=== PATIENT | female | born 1990 | race Hispanic/Latino ===

== ENCOUNTER 2016-10-14 17:23 | Inpatient (IN) | payer OTHER ==
[2016-10-14 17:56] VITALS: BMI 52.1
[2016-10-14] MEDS: Lactated Ringer's 1,000 ML IV SCH (18:10)
--- NOTE | 2016-10-14 18:10 | OBADHP ---
Datetime: 10/14/2016 18:01 Admit Comment, IP Provider: at 37+weeks send from pmd offuce due to bp 170/105,no hedacxhe or b lurry vision, no ctxs, vb, lof,+fm. pt was placed on labetol 100 mg bid 2 weks ago. pt took her meds today. obhx primi pmh pih med labetolol all nkda psh denies soh denies ve cft/50/-3 a/p at 37+weeks r/o preeclampsia admit to l_d npo/ivf labs pih work up bp monitoring cont bright and efm cervidil for cervical ripening aniticipate Pelvic Type - PN: Adequate Extremities - PN: Normal Abdomen - PN: Normal Back - PN: Normal Breast - PN: Not Done Lungs - PN: Normal Heart - PN: Normal Thyroid - PN: Not Done Neurologic - PN: Normal HEENT - PN: Normal General - PN: Normal FHR - Baseline A Provider: 130 Contraction Comments Provider: occ Comments, ACOG Physical Exam: gravid,non tender ext mild edema,no calf ten ref 1+ bss vertex IP Hx Assessment: The History has been Reviewed and is Current Vital Signs Provider: Reviewed IP Chief Complaint: Signs/Symptoms Gestational HTN NICHD Variability Prov Fetus A: Moderate 6-25bpm NICHD Accel Fetus A IP Provider: 15X15 FHR Category Provider Fetus A: Category I (Annotations: Data stored by CPN on behalf of user) Dilatation, Provider: ft Effacement, Provider: 50 Station, Provider: -2 Genitourinary Exam: Normal DTRs - PN: Normal EGA AdmitDate IP: 37.3 IP Adm Impression: Term, intrauterine ; No Active Labor; Intact Membranes IP Admit Plan: Admit to unit; Initiate labor induction protocol
[2016-10-14 18:39] LABS: BASO % 0.1 % (0.0-2.0); EOS # 0.4 K/uL (0.0-0.7); EOS % 2.7 % (0.0-4.0); HEMATOCRIT 36.7 % (34.0-47.0); LYMPH # 1.5 K/uL (1.0-4.3); LYMPH % 11.2 % (20.0-40.0); MEAN CELL VOLUME 88.6 fL (81.0-99.0); MEAN CORPUSCULAR HEMOGLOBIN 29.3 pg (27.0-31.0); MEAN CORPUSCULAR HGB CONC 33.1 g/dL (33.0-37.0); MEAN PLATELET VOLUME 9.6 fL (7.2-11.7); MONO # 0.8 K/uL (0.0-0.8); MONO % 6.4 % (0.0-10.0); WHITE BLOOD COUNT 13.3 K/uL (4.8-10.8)
[2016-10-14 18:40] LABS: CHLORIDE 100 mmol/L (98-107)
[2016-10-14 18:41] LABS: POTASSIUM 3.8 mmol/L (3.6-5.2); SODIUM 134 mmol/L (132-148)
[2016-10-14 18:43] LABS: ALB/GLOB RATIO 1.2 (1.0-2.1); ALKALINE PHOSPHATASE 124 U/L (38-126); ALT/SGPT 16 U/L (9-52); AST/SGOT 15 U/L (14-36); BILIRUBIN,TOTAL < 0.1 mg/dL (0.2-1.3); BLOOD UREA NITROGEN 10 mg/dL (7-17); CARBON DIOXIDE 20 mmol/L (22-30); GFR AFRICAN-AMERICAN > 60; GLUCOSE,RANDOM 80 mg/dL (65-105); TOTAL PROTEIN 6.4 g/dL (6.3-8.3)
[2016-10-14 18:44] LABS: URIC ACID 3.9 mg/dL (2.2-7.5)
[2016-10-14 18:59] LABS: RBC URINE 18 /hpf (0-3); URINE BACTERIA MOD (<OCC); URINE BILIRUBIN NEGATIVE (NEGATIVE); URINE BLOOD NEGATIVE (NEGATIVE); URINE COLOR Yellow (YELLOW); URINE GLUCOSE (UA) NORMAL (Normal); URINE KETONE NEGATIVE (NEGATIVE); URINE LEUKOCYTE ESTERASE 1+ Leu/uL (Negative); URINE PROTEIN 2+ mg/dL (NEGATIVE); URINE UROBILINOGEN NORMAL mg/dL (0.2-1.0); WBC URINE 20 /hpf (0-5)
--- NOTE | 2016-10-14 19:22 | OBPN ---
Datetime: 10/14/2016 19:20 IP Procedures: Sterile Vag Exam IP Progress Plan: Cervical Ripening Contraction Comments Provider: none FHR - Baseline A Provider: 140 IP Progress Note Comment: pt was examined at bed side ve ft/50/-3 cervidil placed r/a/b discussed Vital Signs Provider: Reviewed NICHD Accel Fetus A IP Provider: 15X15 FHR Category Provider Fetus A: Category I NICHD Variability Prov Fetus A: Moderate 6-25bpm Dilatation, Provider: ft Effacement, Provider: 50 Station, Provider: -2 Datetime: 10/14/2016 18:01 IP Informed Consent Obtain: Vaginal Delivery
[2016-10-14] MEDS ORDERED: Nalbuphine 20 mg/ml Inj (1 ml) IVP PRN (19:30)
--- NOTE | 2016-10-14 20:05 | OBADHP ---
Datetime: 10/14/2016 19:20 IP Chief Complaint Other: 25 year old P0 at 37 weeks Gestation, chronic Hypertension on Labetalol ad mitted for labor induction for sperimposed Preeclampsia. Admit Comment, IP Provider: 37 weeks Gestation, superimposed Preeclampsia admitted for labor inducti on Pelvic Type - PN: Adequate Extremities - PN: Normal Abdomen - PN: Normal Back - PN: Normal Breast - PN: Normal Lungs - PN: Normal Heart - PN: Normal Thyroid - PN: Normal Neurologic - PN: Normal HEENT - PN: Normal General - PN: Normal Weight - Estimated: 2900 Presentation-Admit: Vertex FHR - Baseline A Provider: 140 Contraction Comments Provider: none Gestation - Est Wks by US: 37.0 IP Hx Assessment: The History has been Reviewed and is Current Vital Signs Provider: Reviewed IP Chief Complaint: Signs/Symptoms Gestational HTN NICHD Variability Prov Fetus A: Moderate 6-25bpm NICHD Accel Fetus A IP Provider: 15X15 FHR Category Provider Fetus A: Category I NICHD Decel Fetus A IP Provider: None Dilatation, Provider: ft Effacement, Provider: 50 Station, Provider: -2 Genitourinary Exam: Normal DTRs - PN: Normal EGA AdmitDate IP: 37.3 IP Adm Impression: Term, intrauterine ; No Active Labor IP Admit Plan: Admit to unit; Initiate labor induction protocol
[2016-10-15] MEDS: Lactated Ringer's 1,000 ML IV SCH (00:25)
[2016-10-15] MEDS ORDERED: Oxytocin 30 UNIT 500 ML IV ONE (06:14)
--- NOTE | 2016-10-15 06:14 | OBPN ---
Datetime: 10/15/2016 06:11 IP Procedures: Sterile Vag Exam FHR - Baseline A Provider: 130 IP Progress Note Comment: pt ws examined t bed side ve /-[address] lozano aware Vital Signs Provider: Reviewed; Within Normal Limits NICHD Accel Fetus A IP Provider: 15X15 FHR Category Provider Fetus A: Category I NICHD Variability Prov Fetus A: Moderate 6-25bpm Dilatation, Provider: 2 Effacement, Provider: 70 Station, Provider: -2 Datetime: 10/14/2016 19:20 Gestation - Est Wks by US: 37.0 Weight - Estimated: 2900 Presentation-Admit: Vertex NICHD Decel Fetus A IP Provider: None
[2016-10-15] MEDS ORDERED: Oxytocin 30 UNIT 500 ML IV PRN (06:16)
--- NOTE | 2016-10-15 09:48 | OBPN ---
Datetime: 10/15/2016 09:44 IP Progress Impression: Normal progression of labor; Reassuring heart rate IP Informed Consent Obtain: Vaginal Delivery; Risks, Benefits and Alternatives Discussed IP Procedures: Sterile Vag Exam IP Progress Plan: Continue present management; Augmentation; Anticipate Vaginal Delivery Membranes, Provider: Intact Contraction Comments Provider: Q 3min. FHR - Baseline A Provider: 140 Gestation - Est Wks by US: 37.0 Weight - Estimated: 2900 Presentation-Admit: Vertex IP Progress Note Comment: Latent Phase of Labor. Reassuring Status. Anticipate . Vital Signs Provider: Reviewed; Within Normal Limits NICHD Accel Fetus A IP Provider: 15X15 FHR Category Provider Fetus A: Category I NICHD Variability Prov Fetus A: Moderate 6-25bpm Dilatation, Provider: 3 Effacement, Provider: 80 Station, Provider: -1 NICHD Decel Fetus A IP Provider: None
[2016-10-15] MEDS ORDERED: Bupivacaine HCl 0.25% PF (10 ml) Inj ONE ×2 (10:26→11:05)
[2016-10-15] MEDS ORDERED: Bupivacaine 0.125%/FentaNYL 200 ML EPI ONE (10:27)
--- NOTE | 2016-10-15 10:42 | OBPN ---
Datetime: 10/15/2016 10:36 IP Procedures Other: FSE for continuos monitoring because of body habitus. IP Progress Plan Other: Epidural Anesthesia given IP Progress Impression: Normal progression of labor; Reassuring heart rate IP Informed Consent Obtain: Vaginal Delivery; Risks, Benefits and Alternatives Discussed IP Procedures: Artificial ROM; Scalp Electrode; Sterile Vag Exam IP Progress Plan: Continue present management; Augmentation Membranes, Provider: Ruptured Amniotic Fluid Color, Provider: Clear FHR - Baseline A Provider: 140 Gestation - Est Wks by US: 37.0 Weight - Estimated: 2900 Presentation-Admit: Vertex IP Progress Note Comment: Active Labor. Reassuring Status. Anticipate Vital Signs Provider: Reviewed; Within Normal Limits NICHD Accel Fetus A IP Provider: 15X15 FHR Category Provider Fetus A: Category I NICHD Variability Prov Fetus A: Moderate 6-25bpm Dilatation, Provider: 4 Effacement, Provider: 100 Station, Provider: -1 NICHD Decel Fetus A IP Provider: None
--- NOTE | 2016-10-15 14:48 | OBPN ---
Datetime: 10/15/2016 14:41 IP Progress Impression: Normal progression of labor; Reassuring heart rate IP Informed Consent Obtain: Vaginal Delivery; Risks, Benefits and Alternatives Discussed IP Procedures: Sterile Vag Exam IP Progress Plan: Continue present management; Augmentation; Anticipate Vaginal Delivery Membranes, Provider: Ruptured FHR - Baseline A Provider: 130 Gestation - Est Wks by US: 37.0 Weight - Estimated: 2900 Presentation-Admit: Vertex IP Progress Note Comment: Active Labor. Category II Heart Tracing, close to Delivery. Vital Signs Provider: Reviewed; Within Normal Limits FHR Category Provider Fetus A: Category II NICHD Variability Prov Fetus A: Moderate 6-25bpm Dilatation, Provider: 8 Effacement, Provider: 100 Station, Provider: 0 NICHD Decel Fetus A IP Provider: Variable
[2016-10-15] MEDS ORDERED: Lidocaine 2% Inj (20ml) ONE ×2 (16:50→18:24)
[2016-10-15] MEDS ORDERED: Benzocaine/Menthol 20%-0.5% Topical Spray (60 ml) TOP PRN (18:39)
--- NOTE | 2016-10-15 18:47 | OBDS ---
DELIVERY PERSONNEL Delivery Doctor: Angélica Santana MD Scrub Nurse: Jaquelin Rivera [employer] Professor: Liliane Kohler RN MATERNAL INFORMATION Delivery Anesthesia: Epidural Medications in Delivery: Lidocaine 2%; Pitocin 30 units IV Estimated Blood Loss (ml): 150 Placenta Cultured: No Maternal Complications: None RN Comments: Liveborn Baby Girl. 9-9 Provider Comments: to a viable girl, 's 9/9. LABOR SUMMARY EDC: 11/01/2016 00:00 No. Babies in Womb: 1 Attempted: No Labor Anesthesia: Epidural LABOR INFORMATION Reason for Induction: Other Complete Dilatation: 10/15/2016 16:46 Cervical Ripening Agents: Cervidil Oxytocin: Induction Group B Beta Strep: Negative (Annotations: 10/10/16 ) Antibiotics # of Doses: 0 Antibiotics Time of Last Dose: 0 Steroids Given: None Reason Steroids Not Administered: Not Applicable MEMBRANES Membranes Rupture Method: Artificial Rupture of Membranes: 10/15/2016 09:41 Length of Rupture (hrs): 8.48 Amniotic Fluid Color: Clear Amniotic Fluid Amount: Small Amniotic Fluid Odor: Normal STAGES OF LABOR Stage 2 hrs: 1 Stage 2 min: 24 Stage 3 hrs: 0 Stage 3 min: 7 VAGINAL DELIVERY Episiotomy: None Laceration Extension: Second Degree Laceration Type: Perineal Laceration Repair: Yes Laceration Repair Note: Second Degree laceration repaired with 2-0 Chromic catgut Initial Vag Sponge Count: 10 Initial Vag Sharps Count: 1 Sponge Count Correct: Vaginal Sweep Performed BABY A INFORMATION Delivery Date/Time: 10/15/2016 18:10 Method of Delivery: Vaginal Born in Route : No : N/A Forceps: N/A Vacuum Extraction: N/A Shoulder Dystocia : No SHOULDER DYSTOCIA BABY A Delivery Date/Time: 10/15/2016 18:10 PRESENTATION/POSITION BABY A Presentation: Cephalic Cephalic Presentation: Vertex Vertex Position: Right Occipital Anterior Breech Presentation: N/A PLACENTA INFORMATION BABY A Placenta Delivery Time : 10/15/2016 18:17 Placenta Method of Delivery: Spontaneous Placenta Status: Delivered SCORES BABY A Heart Rate 1 min: >100 bpm Resp Effort 1 min: Good Cry Reflex Irritability 1 min: Cough or Sneeze or Pulls Away Muscle Tone 1 min: Active Motion Color 1 min: Body [place], Extremities Blue Resuscitation Effort 1 min: Tactile Stimulation SCORE 1 MIN: 9 Heart Rate 5 min: >100 bpm Resp Effort 5 min: Good Cry Reflex Irritability 5 min: Cough or Sneeze or Pulls Away Muscle Tone 5 min: Active Motion Color 5 min: Body [place], Extremities Blue SCORE 5 MIN: 9 INFANT INFORMATION BABY A Gestational Age at Delivery: 37.4 Gestational Status: Term Outcome : Liveborn Infant Condition : Stable Infant Sex: Female IDENTIFICATION/MEDS BABY A ID Band Number: [id number] ID Band Location: Left Leg; Left Arm Sensor Applied: Yes Sensor Number: [id number] Sensor Location : Cord Clamp WEIGHT/LENGTH BABY A Birthweight (gms): 2850 Infant Weight (lb): 6 Weight (oz): 5 Infant Length Inches: 20.00 Length cms: 50.8 CORD INFORMATION BABY A No. Cord Vessels: 3 Nuchal Cord : N/A Cord Blood Taken: Yes Infant Suction: Mouth; Nose ASSESSMENT BABY A Complications: None Physical Findings at Delivery: Within Normal Limits Infant Respirations: Appears Normal Stretch Box Tender/ALS Called : No Care By: verónica Transferred To: Remains with Mother
[2016-10-16 08:03] VITALS: O2SAT 97
[2016-10-16 08:29] LABS: HEMATOCRIT 32.8 % (34.0-47.0); MEAN CELL VOLUME 89.2 fL (81.0-99.0); MEAN CORPUSCULAR HEMOGLOBIN 29.5 pg (27.0-31.0); MEAN CORPUSCULAR HGB CONC 33.1 g/dL (33.0-37.0); MEAN PLATELET VOLUME 9.4 fL (7.2-11.7); RED CELL DISTRIBUTION WIDTH 14.2 % (11.5-14.5); WHITE BLOOD COUNT 13.6 K/uL (4.8-10.8)
[2016-10-16] MEDS: Multiple Vitamins Tab PO SCH (10:18)
[2016-10-17 02:00] VITALS: RESP 20
[2016-10-17 07:52] VITALS: BP 130/81; PULSE 90; TEMP 97.6
[2016-10-17] MEDS: Multiple Vitamins Tab PO SCH (09:20)
--- NOTE | 2016-10-18 10:38 | OBPPN ---
Datetime: 10/17/2016 08:21 PP Pain Prov: Within normal limits PP Nausea Prov: Denies PP Flatus Prov: Yes PP BM Prov: No PP Heart Prov: Normal PP Lungs Prov: Normal PP Abdomen/Uterus Prov: Normal PP Lochia Prov: Normal PP Vulva/Perineum Prov: Normal PP Extremities Prov: Normal PP C/S Incision Prov: Not Applicable PP Progress Prov: Normal PP Impression Prov: Normal progression PP Plan Prov: Discharge PP Progress Note Prov: S-patient denies any compalnts.denies nausea, vomiting, headache, chest pain, shortness of breath, numbness or tingling in hands and feet, vision changes, epigastric pain O-VS BP mostly 120-130s/70-90s Fundus firm and below umbilicus extremities no calf tendernss A/P Patient s/p vaginal delivery ppd 2. complicated by pre-eclampsia. -discharge today -follow up in office in 2 weeks for BP chcek -patient given PIH precautions Vital Signs Provider PP: Reviewed; Within Normal Limits Datetime: 10/16/2016 21:35 PP Breasts Prov: Normal PP CVA Tenderness Prov: Normal
--- NOTE | 2016-10-18 10:40 | OBDCSUM ---
Datetime: 10/17/2016 08:29 Contraception discussed, Prov: Yes Contraception after Delivery: Undecided
--- NOTE | 2016-10-18 10:42 | OBDCSUM ---
Datetime: 10/17/2016 08:29 Contraception discussed, Prov: Yes Contraception after Delivery: Undecided
== END 2016-10-17 11:35 | disposition home or self-care (01) | DRG 775 ==
LOC: C.EROB 17:23 → C.4D 17:54 → C.4M 10-15 20:30
PROVIDERS: ADMIT Obstetrics & Gynecology; ATTEND Obstetrics & Gynecology
PROC: 10E0XZZ Delivery of Products of Conception, External Approach (ICD-10-PCS; principal; 2016-10-15)
PROC: 0KQM0ZZ Repair Perineum Muscle, Open Approach (ICD-10-PCS; 2016-10-15)
PROC: 3E0P7GC Introduction of Other Therapeutic Substance into Female Reproductive, Via Natural or Artificial Opening (ICD-10-PCS; 2016-10-15)
DX: O14.94 Unspecified pre-eclampsia, complicating childbirth (principal); O70.1 Second degree perineal laceration during delivery; O13.4 Gestational [pregnancy-induced] hypertension without significant proteinuria, complicating childbirth; Z37.0 Single live birth; Z3A.37 37 weeks gestation of pregnancy

== ENCOUNTER 2018-11-22 03:14 | Emergency (ER) | payer OTHER ==
[2018-11-22 03:15] VITALS: BMI 52.1
[2018-11-22 03:30] VITALS: BP 156/95; PULSE 104; RESP 18; TEMP 97.9; O2SAT 99
[2018-11-22] MEDS ORDERED: Tdap Vaccine 0.5 ml Vial (10-64 yrs) IM ONE ×2 (03:42→03:57)
--- NOTE | 2018-11-22 03:44 | C.PDOC ---
History Of Present Illness 28-year-old female presents to the emergency department status post scraping her right in her arm on a machine prior to arrival. Patient is a nurse in the hospital upstairs and was sent down here for a tetanus shot by her nurse manager telemetry. Time Seen by Provider: 11/22/18 03:32 Chief Complaint (Nursing): Abnormal Skin Integrity History Per: Patient History/Exam Limitations: no limitations Onset/Duration Of Symptoms: Hrs Current Symptoms Are (Timing): Still Present Location Of Injury: Right: Arm Past Medical History Reviewed: Historical Data, Nursing Documentation, Vital Signs Vital Signs: Last Vital Signs Temp 97.9 F 11/22/18 03:20 Pulse 104 H 11/22/18 03:20 Resp 18 11/22/18 03:20 BP 156/95 H 11/22/18 03:20 Pulse Ox 99 11/22/18 03:20 Primary Care Provider: Maury Brito - Medical History PMH: Hyperthyroidism Surgical History: Tonsillectomy - [facility] Procedures DELIVERY OF PRODUCTS OF CONCEPTION, EXTERNAL APPROACH (10/14/16) INTRODUCE OF OTH THERAP SUBST INTO FEM REPROD, VIA OPENING (10/14/16) REPAIR PERINEUM MUSCLE, OPEN APPROACH (10/14/16) Family History: States: No Known Family Hx - Social History Hx Tobacco Use: No Hx Alcohol Use: No Hx Substance Use: No - Immunization History Hx Tetanus Toxoid Vaccination: No Hx Influenza Vaccination: No Hx Pneumococcal Vaccination: No Review Of Systems Constitutional: Negative for: Fever, Chills Gastrointestinal: Negative for: Nausea, Vomiting Musculoskeletal: Positive for: Arm Pain Skin: Negative for: Rash Neurological: Negative for: Weakness, Numbness Physical Exam - Physical Exam Appears: Non-toxic, No Acute Distress Skin: Normal Color, Warm, Dry Head: Atraumatic, Normacephalic Neck: Normal Extremity: Normal ROM, Other (2cm superficial scrape to upper right arm) Neurological/Psych: Oriented x3, Normal Speech ED Course And Treatment O2 Sat by Pulse Oximetry: 99 (RA) Pulse Ox Interpretation: Normal Medical Decision Making Medical Decision Making: Patient received tetanus vaccination. Disposition Counseled Patient/Family Regarding: Diagnosis, Need For Followup - Disposition Referrals: Maury Brito MD [Primary Care Provider] - Disposition: HOME/ ROUTINE Disposition Time: 03:44 Condition: STABLE Instructions: Skin Abrasions (DC) Forms: [facility] (German), General Discharge Instructions - Clinical Impression Clinical Impression: Abrasion - PA / BABY REGISTRY SALES CONSULTANT / Resident Statement MD/DO has reviewed & agrees with the documentation as recorded. - Scribe Statement The provider has reviewed the documentation as recorded by the Scribe (Pk Lomeli) All medical record entries made by the Scribe were at my direction and personally dictated by me. I have reviewed the chart and agree that the record accurately reflects my personal performance of the history, physical exam, medical decision making, and the department course for this patient. I have also personally directed, reviewed, and agree with the discharge instructions and disposition.
== END 2018-11-22 04:03 | disposition home or self-care (01) ==
LOC: C.ER 03:14 → SUPCPDRO 03:14 → C.ER 04:03
DX: S40.811A Abrasion of right upper arm, initial encounter (principal); W22.8XXA Striking against or struck by other objects, initial encounter; Y92.239 Unspecified place in hospital as the place of occurrence of the external cause; Y99.0 Civilian activity done for income or pay